=== PATIENT | female | born 1995 | race Caucasian/White ===

== ENCOUNTER 2016-09-30 15:03 | Emergency (ER) | payer MEDICAID ==
[~2016-09-30] VITALS: Ht 154.9 cm; Wt 91.2 kg
[2016-09-30 15:05] VITALS: BP 126/83
== END 2016-09-30 18:07 | disposition home or self-care (01) ==
LOC: ED 15:03
DX: J40 Bronchitis, not specified as acute or chronic (principal); Z88.0 Allergy status to penicillin
CPT/HCPCS: J7613; J7644; Q0092

== ENCOUNTER 2017-10-19 09:35 | Emergency (ER) | payer MEDICAID ==
[~2017-10-19] VITALS: Ht 154.9 cm; Wt 95.7 kg
[2017-10-19 09:49] VITALS: Ht 154.9 cm; Wt 95.7 kg
[2017-10-19 10:15] LABS: BASOPHIL % 0.5 % (0-2); PLATELET COUNT 298 x10^3mcL (130-400); RED CELL DISTRIBUTION WIDTH 13.8 % (11.5-14.5)
[2017-10-19 10:46] LABS: UA SPECIFIC GRAVITY 1.025 (1.005-1.035); microscopic required? YES; urine erythrocyte NEGATIVE (NEGATIVE)
[2017-10-19 11:15] LABS: CALCIUM 8.6 mg/dL (8.5-10.1); CARBON DIOXIDE 26.6 mmol/L (21-32); CHLORIDE SERUM 107 mmol/L (98-107); CREATININE SERUM 0.6 mg/dL (0.6-1.0); GFR1 > 60 mL/min; GLUCOSE SERUM 91 mg/dL (74-106); POTASSIUM SERUM 3.7 mmol/L (3.5-5.1); SODIUM SERUM 140 mmol/L (136-145)
[2017-10-19 11:20] LABS: ALBUMIN 3.5 g/dL (3.4-5.0); ALKALINE PHOSPHATASE 93 U/L (46-116); ALT/SGPT 46 U/L (14-59); AMYLASE 41 U/L (25-115); AST/SGOT 20 U/L (15-37); BILIRUBIN TOTAL 0.2 mg/dL (0.20-1.00); HDL CHOLESTEROL 47 mg/dL (40-60); LIPASE 115 IU/L (73-393); TOTAL PROTEIN, SERUM 7.4 g/dL (6.4-8.2)
[2017-10-19 11:22] LABS: CHOLESTEROL 134 mg/dL (<200)
[2017-10-19 12:18] VITALS: BP 129/89
== END 2017-10-19 12:18 | disposition home or self-care (01) ==
LOC: ED 09:35
PROVIDERS: Emergency Medicine
DX: K80.70 Calculus of gallbladder and bile duct without cholecystitis without obstruction (principal); Z88.0 Allergy status to penicillin
CPT/HCPCS: 83880; J1885